=== PATIENT | male | born 1940 | race Two or more races ===

== ENCOUNTER 2017-12-02 12:35 | Outpatient (CLI) | payer OTHER | END 2017-12-02 12:43 | disposition home or self-care (01) | LOC: RAD 501 12:35 | DX: N20.1 Calculus of ureter (principal); R06.02 Shortness of breath ==

== ENCOUNTER 2017-12-13 10:24 | Inpatient (IN) | payer OTHER ==
[~2017-12-13] VITALS: Ht 170.2 cm; Wt 95.3 kg
[2017-12-13] MEDS ORDERED: TAMS0.4C PO (10:49)
[2017-12-13] MEDS ORDERED: PROSCAR5 MG PO (10:50)
[2017-12-13] MEDS ORDERED: TRAMADOL HCL50 MG PO (10:53)
[2017-12-13] MEDS ORDERED: KETO10TA2 PO (10:54)
== END 2017-12-18 09:47 | disposition home or self-care (01) | DRG 714 ==
LOC: O/R 12-16 10:30 → SURG 12-16 10:30 → O/R 12-16 12:15 → SURG 12-16 14:33
PROVIDERS: Urology
PROC: 0TF Urinary System, Fragmentation (ICD-10-PCS; 2017-12-16)
PROC: 0VT08ZZ Resection of Prostate, Via Natural or Artificial Opening Endoscopic (ICD-10-PCS; principal; 2017-12-16 10:30)
DX: N40.1 Benign prostatic hyperplasia with lower urinary tract symptoms (principal); N21.0 Calculus in bladder

== ENCOUNTER 2018-03-11 10:16 | Emergency (ER) | payer OTHER ==
[~2018-03-11] VITALS: Ht 170.2 cm; Wt 97.5 kg
[~2018-03-11 10:16] MED LIST: KETO10TA2 PO; PROSCAR5 MG PO; TAMS0.4C PO; TRAMADOL HCL50 MG PO
[2018-03-11] MEDS ORDERED: LASIX20 MG PO (10:54)
[2018-03-11] MEDS ORDERED: SYNTHROID50 MCG PO (10:55)
== END 2018-03-11 12:24 | disposition home or self-care (01) ==
LOC: ER 10:16
DX: R06.02 Shortness of breath (principal); F41.8 Other specified anxiety disorders

== ENCOUNTER → 2019-05-08 11:55 | Outpatient (CLI) | payer OTHER | END | disposition home or self-care (01) | LOC: LAB 11:55 | DX: R97.21 Rising PSA following treatment for malignant neoplasm of prostate (principal); R31.0 Gross hematuria ==

== ENCOUNTER → 2019-05-08 | Outpatient (CLI) | payer OTHER ==
[~2019-05-08] MED LIST changes: +ATORVASTATIN CA40 MG PO; +COZAAR25 MG PO; +ELIQUIS5 M1 PO; +FLONASE16 GM NASAL; +LASIX20 MG PO; +LEVOTHYROXINE75 MCG PO; +LEVOXYL75 MCG PO; +LIPITOR40 MG PO; +LORATADINE10 MG PO; +LOSARTAN POTASS25 MG PO; +MEDROLPACK PO; +METOPROLOL ER-1 EACH PO; +RESTORIL15 M1 PO; +RESTORIL15 MG PO; +SIMVASTATIN5 MG PO; +SYNTHROID50 MCG PO; +TAMSULOSIN HCL0.4 MG PO; +TOPROL XL25 M1 PO
== END | disposition home or self-care (01) ==
LOC: TOM 12:46
DX: R31.0 Gross hematuria (principal); N20.1 Calculus of ureter; N21.0 Calculus in bladder; N40.1 Benign prostatic hyperplasia with lower urinary tract symptoms

== ENCOUNTER 2019-05-14 12:01 | Inpatient (IN) | payer OTHER ==
[~2019-05-14] VITALS: Ht 170.2 cm; Wt 97.5 kg
[~2019-05-14 12:01] MED LIST changes: -ATORVASTATIN CA40 MG PO; -COZAAR25 MG PO; -ELIQUIS5 M1 PO; -FLONASE16 GM NASAL; -LEVOTHYROXINE75 MCG PO; -LEVOXYL75 MCG PO; -LIPITOR40 MG PO; -LORATADINE10 MG PO; -LOSARTAN POTASS25 MG PO; -MEDROLPACK PO; -METOPROLOL ER-1 EACH PO; -RESTORIL15 M1 PO; -RESTORIL15 MG PO; -SIMVASTATIN5 MG PO; -TAMSULOSIN HCL0.4 MG PO; -TOPROL XL25 M1 PO
[2019-05-14] MEDS ORDERED: LEVOXYL75 MCG PO (12:22)
[2019-05-14] MEDS ORDERED: ATORVASTATIN CA40 MG PO (12:22)
[2019-05-14] MEDS ORDERED: METOPROLOL ER-1 EACH PO (12:23)
[2019-05-14] MEDS ORDERED: RESTORIL15 M1 PO (12:23)
[2019-05-14] MEDS ORDERED: COZAAR25 MG PO (12:23)
[2019-05-14] MEDS ORDERED: ELIQUIS5 M1 PO (12:24)
[2019-05-14] MEDS ORDERED: SIMVASTATIN5 MG PO (12:25)
--- NOTE | 2019-05-14 12:28 | NUR ---
SE RECIBE PTE MASCULINO, ALERTA Y ORIENTADO X3, REFIERE DOLOR EN TODO EL CUERPO, COSTADO IZQ, ESPALDA BAJA Y HEMATURIA, TOS DESDE HACE DOS MORGAN. PTE LLEGA AER POR ORDEN DE DR. TRAVIS MOODY Y DR. PATEL.
--- NOTE | 2019-05-14 13:12 | NUR ---
PACIENTE ALERTA Y ORIENTADO POR STEVE ESFERAS. ORIENTA A PACIENTE SOBRE PROCEDIMIENTO Y TX, REFIERE ENTENDER. EXTRAE MUESTRAS DE LABORATORIO CON MEDIDAS ASEPTICAS Y COLOCA IVF'S MICK ORDEN MEDICA. PENDIENTE RESULTADOS DE LABORATRIO PARA EVALUACION MEDICA.
[2019-05-21] MEDS ORDERED: TOPROL XL25 M1 PO (11:21)
[2019-05-21] MEDS ORDERED: LORATADINE10 MG PO (11:21)
[2019-05-21] MEDS ORDERED: MEDROLPACK PO (11:21)
[2019-05-21] MEDS ORDERED: TAMSULOSIN HCL0.4 MG PO (11:21)
[2019-05-21] MEDS ORDERED: FLONASE16 GM NASAL (11:21)
[2019-05-21] MEDS ORDERED: LEVOTHYROXINE75 MCG PO (11:21)
[2019-05-21] MEDS ORDERED: LOSARTAN POTASS25 MG PO (11:21)
[2019-05-21] MEDS ORDERED: RESTORIL15 MG PO (11:21)
[2019-05-21] MEDS ORDERED: LIPITOR40 MG PO (11:21)
[2019-05-21] MEDS ORDERED: PROSCAR5 MG PO (11:21)
== END 2019-05-21 14:10 | disposition home or self-care (01) | DRG 660 ==
LOC: ER 12:01 → MEDJ 21:46
PROVIDERS: Urology; ADMIT Internal Medicine
PROC: B246ZZZ Ultrasonography of Right and Left Heart (ICD-10-PCS; 2019-05-14)
PROC: 3E0F7GC Introduction of Other Therapeutic Substance into Respiratory Tract, Via Natural or Artificial Opening (ICD-10-PCS; 2019-05-14)
PROC: 0TF48ZZ Fragmentation in Left Kidney Pelvis, Via Natural or Artificial Opening Endoscopic (ICD-10-PCS; 2019-05-20)
PROC: 0TF78ZZ Fragmentation in Left Ureter, Via Natural or Artificial Opening Endoscopic (ICD-10-PCS; 2019-05-20)
PROC: BT1FZZZ Fluoroscopy of Left Kidney, Ureter and Bladder (ICD-10-PCS; 2019-05-20)
PROC: 0T778DZ Dilation of Left Ureter with Intraluminal Device, Via Natural or Artificial Opening Endoscopic (ICD-10-PCS; principal; 2019-05-20 08:15)
DX: N13.2 Hydronephrosis with renal and ureteral calculous obstruction (principal); I31.3 Pericardial effusion (noninflammatory); N17.8 Other acute kidney failure; N39.0 Urinary tract infection, site not specified; R31.0 Gross hematuria; K57.30 Diverticulosis of large intestine without perforation or abscess without bleeding; I07.1 Rheumatic tricuspid insufficiency; N21.0 Calculus in bladder; N40.1 Benign prostatic hyperplasia with lower urinary tract symptoms; I48.0 Paroxysmal atrial fibrillation; J32.0 Chronic maxillary sinusitis; J22 Unspecified acute lower respiratory infection

== ENCOUNTER 2019-08-06 14:56 | Outpatient (CLI) | payer OTHER ==
[~2019-08-06 14:56] MED LIST changes: +ATORVASTATIN CA40 MG PO; +COZAAR25 MG PO; +ELIQUIS5 M1 PO; +FLONASE16 GM NASAL; +LEVOTHYROXINE75 MCG PO; +LEVOXYL75 MCG PO; +LIPITOR40 MG PO; +LORATADINE10 MG PO; +LOSARTAN POTASS25 MG PO; +MEDROLPACK PO; +METOPROLOL ER-1 EACH PO; +RESTORIL15 M1 PO; +RESTORIL15 MG PO; +SIMVASTATIN5 MG PO; +TAMSULOSIN HCL0.4 MG PO; +TOPROL XL25 M1 PO
== END 2019-08-06 15:00 | disposition home or self-care (01) ==
LOC: RAD 14:56
DX: N20.1 Calculus of ureter (principal)

== ENCOUNTER 2019-08-06 15:58 | Outpatient (CLI) | payer OTHER | END 2019-08-06 16:26 | disposition home or self-care (01) | LOC: LAB 15:58 | DX: N30.00 Acute cystitis without hematuria (principal) ==